=== PATIENT | female | born 1985 | race Caucasian/White ===

== ENCOUNTER 2018-08-08 11:52 | Outpatient (REF) | payer MEDICAID, SELFPAY ==
[2018-08-08 21:10] LABS: BUN 13 mg/dL (7-18); CREATININE 0.76 mg/dL (0.55-1.02); Calcium 9.2 mg/dL (8.5-10.1); Chloride 99 mmol/L (98-107); Glucose 61 mg/dL (70-100); Potassium 3.3 mmol/L (3.5-5.1); Sodium 139 mmol/L (136-145)
== END 2018-08-08 12:12 ==
LOC: NCHCN 11:52
PROVIDERS: PCP Nurse Practitioner Family; Visit Provider Nurse Practitioner Family
DX: I10 Essential (primary) hypertension (principal)
CPT/HCPCS: 80048

== ENCOUNTER 2018-09-03 14:39 | Outpatient (REF) | payer MEDICAID, SELFPAY ==
[2018-09-03 21:32] LABS: Anion Gap 8.7 mmol/L (3-11); BUN 14 mg/dL (7-18); CO2 27.3 mmol/L (21.0-32.0); CREATININE 0.95 mg/dL (0.55-1.02); Calcium 8.9 mg/dL (8.5-10.1); Chloride 102 mmol/L (98-107); Glucose 110 mg/dL (70-100); Potassium 3.7 mmol/L (3.5-5.1); Sodium 138 mmol/L (136-145)
[2018-09-05 11:00] LABS: HBs Antibody, Quant <3.1 mIU/mL; Hepatitis B Surface Ab Negative
[2018-09-05 11:52] LABS: Hepatitis C Ab w Rflx HCV PCR Negative (NEGAT)
[2018-09-05 11:53] LABS: HIV-1/2 Ag & Ab Screen Negative (NEGAT)
[2018-09-05 12:32] LABS: Syphilis Serology (RPR) Negative (Negative)
[2018-09-05 14:29] LABS: Chlamydia Result Negative; GC Result Negative; Specimen Description URINE
== END 2018-09-03 14:59 ==
LOC: NCHCN 14:39
PROVIDERS: PCP Nurse Practitioner Family; Visit Provider Physician Assistant Medical
DX: I10 Essential (primary) hypertension (principal); E87.6 Hypokalemia; F11.21 Opioid dependence, in remission; Z11.3 Encounter for screening for infections with a predominantly sexual mode of transmission; Z11.4 Encounter for screening for human immunodeficiency virus [HIV]; Z11.59 Encounter for screening for other viral diseases
CPT/HCPCS: 80048; 86706; 86803; 87389; 87491; 87591; 86592

== ENCOUNTER 2019-11-07 10:58 | Outpatient (REF) | payer MEDICAID, SELFPAY ==
[2019-11-07 21:12] LABS: Hemoglobin A1C 5.8 % (3.8-5.6)
[2019-11-07 21:13] LABS: ALT 37 U/L (14-59); AST 16 U/L (15-37); Albumin 3.3 g/dL (3.4-5.0); Alkaline Phosphatase 52 U/L (46-116); Anion Gap 9.5 mmol/L (3-11); BUN 10 mg/dL (7-18); Bilirubin, Total 0.3 mg/dL (0.2-1.0); CO2 29.5 mmol/L (21.0-32.0); CREATININE 0.82 mg/dL (0.55-1.02); Calcium 8.8 mg/dL (8.5-10.1); Calculated LDL 119 mg/dL; Chloride 103 mmol/L (98-107); Cholesterol 185 mg/dL (<200); Glucose 86 mg/dL (74-106); HDL Cholesterol 43 mg/dL (40-60); Sodium 142 mmol/L (136-145); TSH 1.49 uIU/mL (0.36-3.74); Total Protein 6.8 g/dL (6.4-8.2); Triglyceride 118 mg/dL (<150)
== END 2019-11-07 11:18 ==
LOC: NCHCN 10:58
PROVIDERS: PCP Nurse Practitioner Family; Visit Provider Nurse Practitioner Family
DX: I10 Essential (primary) hypertension (principal); F11.21 Opioid dependence, in remission; L91.8 Other hypertrophic disorders of the skin; L20.0 Besnier's prurigo; E66.9 Obesity, unspecified; E78.5 Hyperlipidemia, unspecified
CPT/HCPCS: 80053; 80061; 83036; 84443

== ENCOUNTER 2020-04-20 15:14 | Outpatient (REF) | payer MEDICAID, SELFPAY ==
[2020-04-20 21:50] LABS: Hemoglobin A1C 5.7 % (3.8-5.6)
[2020-04-20 22:08] LABS: Anion Gap 9.5 mmol/L (3-11); BUN 14 mg/dL (7-18); CO2 27.5 mmol/L (21.0-32.0); Calcium 8.6 mg/dL (8.5-10.1); Chloride 103 mmol/L (98-107); Glucose 95 mg/dL (74-106); Potassium 3.3 mmol/L (3.5-5.1); Sodium 140 mmol/L (136-145)
== END 2020-04-20 15:34 ==
LOC: NCHCN 15:14
PROVIDERS: PCP Nurse Practitioner Family; Visit Provider Nurse Practitioner Family
DX: R73.03 Prediabetes (principal); E87.6 Hypokalemia
CPT/HCPCS: 80048; 83036

== ENCOUNTER 2020-08-30 12:53 | Outpatient (REF) | payer MEDICAID, SELFPAY ==
--- NOTE | 2020-08-30 11:30 | PAPFT_PTH ---
PATIENT: Shira Fried LOC: [facility]#:[id number] AGE/SX: 35/F ROOM: RE08/30/[address]: Nyasia Rosales : 1985 BED: DIS: 08/30/2020 SPEC #: [id number] RECD: 08/31/20 12:59 STATUS: MARISSA REKevin #: [id number] CHERYLE: 08/30/20 11:[address]: Nyasia Jackson [facility] Cytology RECD BY: Tania Mckeon Tissues: 1 - CX/ENDOCX FOR PAP SMEARS Procedures: PAP THIN PREP/[facility] Screening HPV DNA PROBE Comments: [id number] ([facility])
[2020-08-30 21:56] LABS: BUN 10 mg/dL (7-18); C-Reactive Protein 1.02 mg/dL (0.0-0.3); CREATININE 0.82 mg/dL (0.55-1.02); Calcium 9.2 mg/dL (8.5-10.1); Chloride 101 mmol/L (98-107); Glucose 80 mg/dL (74-106); Potassium 3.2 mmol/L (3.5-5.1); Sodium 138 mmol/L (136-145); TSH 1.48 uIU/mL (0.36-3.74)
[2020-08-30 22:16] LABS: ESR 23 mm/hr (0-20)
[2020-08-30 22:34] LABS: Vitamin B12 556 pg/mL (193-986)
[2020-09-16 10:40] LABS: ANA Interpretation Negative (Negative)
== END 2020-08-30 13:13 ==
LOC: NCHCN 12:53
PROVIDERS: PCP Nurse Practitioner Family; Visit Provider Nurse Practitioner Family
DX: I10 Essential (primary) hypertension (principal); R73.03 Prediabetes; Z86.39 Personal history of other endocrine, nutritional and metabolic disease; K14.0 Glossitis; Z12.4 Encounter for screening for malignant neoplasm of cervix; Z11.51 Encounter for screening for human papillomavirus (HPV); Z00.00 Encounter for general adult medical examination without abnormal findings
CPT/HCPCS: 80048; 85652; 88142; 82607; 84443; 86038; 86140; 87624

== ENCOUNTER 2020-11-01 16:59 | Outpatient (REF) | payer MEDICAID, SELFPAY ==
[2020-11-01 20:54] LABS: HCT 41.7 % (36.0-46.0); MCHC 33.6 % (32.0-36.0); MCV 89.5 fL (80-95); MPV 10.1 fL (8.0-11.0); Platelet Count 263 10^3/uL (130-400); RBC 4.66 10^6/uL (3.93-5.22); RDW 12.5 % (11.7-14.6); RDW-SD 41.6 fL; WBC 7.34 10^3/uL (4.4-10.8)
[2020-11-01 21:11] LABS: Potassium 3.1 mmol/L (3.5-5.1)
[2020-11-01 21:35] LABS: Hemoglobin A1C 5.6 % (<5.7)
[2020-11-02 16:21] LABS: Rheumatoid Factor 15.3 IU/mL (<12.0)
[2020-11-04 13:45] LABS: SS-A Antibody 1.7 Units (<20.0)
== END 2020-11-01 17:19 ==
LOC: NCHCN 16:59
PROVIDERS: PCP Nurse Practitioner Family; Visit Provider Nurse Practitioner Family
DX: K14.0 Glossitis (principal); I10 Essential (primary) hypertension; Z86.39 Personal history of other endocrine, nutritional and metabolic disease; R73.03 Prediabetes
CPT/HCPCS: 85027; 83036; 84132; 86235; 86431

== ENCOUNTER 2021-05-16 15:16 | Outpatient (REF) | payer MEDICAID, SELFPAY ==
[2021-05-16 22:03] LABS: Anion Gap 11.1 mmol/L (3-11); BUN 8 mg/dL (7-18); CO2 26.9 mmol/L (21.0-32.0); CREATININE 0.8 mg/dL (0.55-1.02); Calcium 8.9 mg/dL (8.5-10.1); Chloride 102 mmol/L (98-107); Glucose 99 mg/dL (74-106); Sodium 140 mmol/L (136-145)
[2021-05-16 22:09] LABS: Hemoglobin A1C 5.8 % (<5.7)
== END 2021-05-16 15:17 | disposition home or self-care (01) ==
LOC: NCHCN 15:16
PROVIDERS: PCP Nurse Practitioner Family; Visit Provider Nurse Practitioner Family
DX: F11.21 Opioid dependence, in remission (principal); R73.03 Prediabetes; F41.1 Generalized anxiety disorder; I10 Essential (primary) hypertension
CPT/HCPCS: 80048; 83036

== ENCOUNTER 2025-07-13 12:14 | Outpatient (REF) | payer MEDICAID, SELFPAY ==
--- NOTE | 2025-07-13 09:00 | PAPFT_PTH ---
PATIENT: Shira Fried LOC: [facility]#:[id number] AGE/SX: 40/F ROOM: RE07/13/[address]: Nyasia Rosales : 1985 BED: DIS: 07/13/2025 SPEC #: [id number] RECD: 07/13/25 18:27 STATUS: MARISSA CORTES #: [id number] CHERYLE: 07/13/25 09:[address]: Nyasia Jackson DEPT: [facility] Cytology RECD BY: Tania Mckeon Tissues: 1 - CX/ENDOCX FOR PAP SMEARS Procedures: PAP THIN PREP/[facility] Screening HPV DNA PROBE Comments: [id number] (HPV 16 & 18/45)
== END 2025-07-13 12:15 | disposition home or self-care (01) ==
LOC: NCHCN 12:14
PROVIDERS: PCP Nurse Practitioner Family; Visit Provider Nurse Practitioner Family
DX: Z12.4 Encounter for screening for malignant neoplasm of cervix (principal)
CPT/HCPCS: 88142; 87624